=== PATIENT | male | born 1965 | race American Indian/Alaskan Native ===

== ENCOUNTER 2017-05-09 05:41 | Day surgery (SDC) | payer BC ==
[2017-05-09 05:41] VITALS: BMI 53.2
[2017-05-09] MEDS ORDERED: Nitroglycerin 2% Ointment Foilpak UD TOP STA (06:07)
[2017-05-09] MEDS ORDERED: Aspirin 325 mg EC Tablets PO STA (06:07)
--- NOTE | 2017-05-09 06:11 | ED PDOC ---
Arrival/HPI - General Chief Complaint: Chest Pain Time Seen by Provider: 05/09/17 05:43 Historian: Patient - History of Present Illness Narrative History of Present Illness (Text): 05/09/17 06:00 Patel Rollins is a 51 year old male, whose past medical history includes CHF, hypertension, and obstructive sleep apnea, who presents to the Emergency department complaining of chest pain. Patient states he has been experiencing left-sided chest pain radiating to his back and left shoulder since yesterday. Patient states pain is sharp in quality. Patient denies any fever, chills, nausea, vomiting, diarrhea, urinary symptoms, neck pain, headache, dizziness, or any other complaints. PMD: Dr. Ashlie Carlin [employer] Service Technician: Dr. Jose Miguel Nance Time/Duration: Other (yesterday) Symptom Onset: Gradual Symptom Course: Unchanged Activities at Onset: Rest, Light Context: Home Past Medical History - Provider Review Nursing Documentation Reviewed: Yes - Infectious Disease Hx of Infectious Diseases: None - Cardiac Hx Cardiac Disorders: Yes Hx Congestive Heart Failure: Yes Hx Hypertension: Yes Hx Pacemaker: No - Pulmonary Hx Respiratory Disorders: No - Neurological Hx Neurological Disorder: No Hx Paralysis: No - HEENT Hx HEENT Disorder: Yes Hx Glaucoma: Yes - Renal Hx Renal Disorder: No - Endocrine/Metabolic Hx Endocrine Disorders: No - Hematological/Oncological Hx Blood Disorders: No Hx Blood Transfusions: No - Integumentary Hx Dermatological Disorder: No - Musculoskeletal/Rheumatological Hx Musculoskeletal Disorders: No - Gastrointestinal Hx Gastrointestinal Disorders: No - Genitourinary/Gynecological Hx Genitourinary Disorders: No - Psychiatric Hx Psychophysiologic Disorder: No Hx Substance Use: No - Surgical History Hx Orthopedic Surgery: Yes (Right Knee Surgery) - Anesthesia Hx Anesthesia: Yes Hx Anesthesia Reactions: No Hx Malignant Hyperthermia: No Family/Social History - Physician Review Nursing Documentation Reviewed: Yes Family/Social History: Unknown Family HX Smoking Status: Never Smoked Hx Alcohol Use: No Hx Substance Use: No Allergies/Home Meds Allergies/Adverse Reactions: Allergies seafood Allergy (Uncoded 05/09/17 07:10) RASH Home Medications: Home Meds Medication Instructions Recorded Confirmed Brimonidine 0.15% [Alphagan P 5 Ml] 1 drop OU BID 04/29/17 05/09/17 Carvedilol [Coreg] 3.125 mg PO BID 04/29/17 05/09/17 Furosemide [Lasix] 20 mg PO DAILY 04/29/17 05/09/17 Latanoprost 0.005% Opht [XALATAN 1 drop OU HS 04/29/17 05/09/17 2.5 Ml] Valsartan [Diovan] 160 mg PO DAILY 04/29/17 05/09/17 Review of Systems - Physician Review All systems were reviewed & negative as marked: Yes - Review of Systems Constitutional: Normal. absent: Fevers Eyes: Normal ENT: Normal Respiratory: absent: Cough Cardiovascular: Chest Pain Gastrointestinal: Normal. absent: Abdominal Pain, Diarrhea, Nausea, Vomiting Genitourinary Male: Normal. absent: Dysuria, Frequency, Hematuria, Urinary Output Changes Musculoskeletal: absent: Neck Pain Skin: Normal. absent: Rash Neurological: Normal. absent: Headache, Dizziness Endocrine: Normal Hemo/Lymphatic: Normal Psychiatric: Normal Physical Exam Vital Signs Reviewed: Yes Vital Signs Temp Pulse Resp BP BP BP Pulse Ox 05/09/17 06:31 80 20 141/92 H 96 05/09/17 05:50 129/85 141/92 H 05/09/17 05:48 97.6 F 84 20 120/61 98 Temperature: Afebrile Blood Pressure: Normal Pulse: Regular Respiratory Rate: Normal Appearance: Positive for: Well-Appearing, Non-Toxic, Comfortable Pain Distress: None Mental Status: Positive for: Alert and Oriented X 3 - Systems Exam Head: Present: Atraumatic, Normocephalic Pupils: Present: PERRL Extroacular Muscles: Present: EOMI Conjunctiva: Present: Normal Mouth: Present: Moist Mucous Membranes Neck: Present: Normal Range of Motion Respiratory/Chest: Present: Clear to Auscultation, Good Air Exchange. No: Respiratory Distress, Accessory Muscle Use Cardiovascular: Present: Regular Rate and Rhythm, Normal S1, S2. No: Murmurs Abdomen: Present: Normal Bowel Sounds. No: Tenderness, Distention, Peritoneal Signs Back: Present: Normal Inspection Upper Extremity: Present: Normal Inspection. No: Cyanosis, Edema Lower Extremity: Present: Normal Inspection. No: Edema Neurological: Present: GCS=15, CN II-XII Intact, Speech Normal Skin: Present: Warm, Dry, Normal Color. No: Rashes Psychiatric: Present: Alert, Oriented x 3, Normal Insight, Normal Concentration Medical Decision Making ED Course and Treatment: 05/09/17 06:00 Impression: 51 year old male complaining of left-sided chest pain radiating to back and left shoulder since yesterday. Plan: -- EKG -- Chest X-ray -- Labs, cardiac enzymes, BNP -- Urinalysis -- Aspirin -- Nitroglycerin -- Reassess and disposition Progress Notes: Reviewed EKG, NSR at [address]-segment elevations or depressions, no T-wave inversions, normal intervals. - Lab Interpretations Lab Results: 05/09/17 06:10 05/09/17 06:10 Lab Results 05/09/17 06:51: Urine Color Yellow, Urine Appearance Clear, Urine pH 6.0, Ur Specific [place] 1.025, Urine Protein Negative, Urine Glucose (UA) Negative, Urine Ketones Negative, Urine Blood Moderate H, Urine Nitrate Negative, Urine Bilirubin Negative, Urine Urobilinogen 1.0 H, Ur Leukocyte Esterase Negative, Urine RBC 1 - 3, Urine WBC 0 - 2, Ur Epithelial Cells 0 - 2, Urine Bacteria Neg 05/09/17 06:10: PT 10.8, INR 1.00, APTT 31.7 H 05/09/17 06:10: Sodium 140, Potassium 4.2, Chloride 102, Carbon Dioxide 29, Anion Gap 13, BUN 16, Creatinine 1.0, Est GFR ( Amer) > 60, Est GFR (Non- Af Amer) > 60, Random Glucose 95, Calcium 9.0, Magnesium 1.9, Total Bilirubin 0.7, AST 27, ALT 29, Alkaline Phosphatase 82, Lactate Dehydrogenase 378, Total Creatine Kinase 161, Troponin I < 0.01, NT-Pro-B Natriuret Pep 304, Total Protein 7.8, Albumin 4.0, Globulin 3.9, Albumin/Globulin Ratio 1.0 L 05/09/17 06:10: WBC 6.0, RBC 4.41, Hgb 12.5 L, Hct 38.8 L, MCV 88.0, MCH 28.3, MCHC 32.2, RDW 13.3, Plt Count 275, MPV 9.4, Gran % 57.7, Lymph % (Auto) 30.3, Howard % (Auto) 9.6 H, Eos % (Auto) 2.2, Baso % (Auto) 0.2, Gran # 3.48, Lymph # 1.8, Howard # 0.6, Eos # 0.1, Baso # 0.01 - RAD Interpretation Radiology Orders: 05/09/17 06:04 CHEST PORTABLE [RAD] Stat - EKG Interpretation Interpreted by ED Physician: Yes Type: 12 lead EKG - Medication Orders Current Medication Orders: Discontinued Medications Aspirin (Ecotrin) 325 mg PO STAT STA Stop: 05/09/17 06:08 Last Admin: 05/09/17 06:18 Dose: 325 mg Atropine Sulfate (Atropine) Confirm Administered Dose 1 mg .ROUTE .STK-MED ONE Stop: 05/09/17 07:00 Last Admin: 05/09/17 08:54 Dose: Bivalirudin (Angiomax) Confirm Administered Dose 250 mg IV .STK-MED ONE Stop: 05/09/17 07:01 Last Admin: 05/09/17 08:54 Dose: Clopidogrel Bisulfate (Plavix) Confirm Administered Dose 600 mg .ROUTE .STK-MED ONE Stop: 05/09/17 07:29 Last Admin: 05/09/17 07:33 Dose: 600 mg Comments: per dr. nance Diphenhydramine HCl (Benadryl) Confirm Administered Dose 50 mg .ROUTE .STK-MED ONE Stop: 05/09/17 07:29 Last Admin: 05/09/17 07:34 Dose: 50 mg Comments: per dr nance Fentanyl (Fentanyl) Confirm Administered Dose 100 mcg .ROUTE .STK-MED ONE Stop: 05/09/17 08:01 Last Admin: 05/09/17 08:02 Dose: 100 mcg Comments: [address] Nance @ 0802 50 mcg administered @ 0817 Heparin Sodium (Porcine) (Heparin 1000 Units/500 Ml Ns) Confirm Administered Dose 1,500 mls @ ud IV .STK-MED ONE Stop: 05/09/17 07:01 Famotidine (Pepcid 20mg/50ml Premix) Confirm Administered Dose 20 mg in 50 mls @ ud IVPB .STK-MED ONE Stop: 05/09/17 07:30 Last Admin: 05/09/17 07:34 Dose: 20 mg Comments: per dr nance Sodium Chloride (Sodium Chloride 0.9%) 1,000 mls @ 100 mls/hr IV .Q10H BAYLEE Stop: 05/09/17 14:00 Last Admin: 05/09/17 10:06 Dose: 100 mls/hr Iohexol (Omnipaque 350mg/Ml 50 Ml) Confirm Administered Dose 50 ml .ROUTE .STK- MED ONE Stop: 05/09/17 07:01 Last Admin: 05/09/17 09:12 Dose: Iohexol (Omnipaque 350 150 Ml) Confirm Administered Dose 150 ml .ROUTE .STK-MED ONE Stop: 05/09/17 07:01 Last Admin: 05/09/17 08:18 Dose: 150 ml Comments: Administered during procedure. Lidocaine HCl (Lidocaine 2% 20ml Vial) Confirm Administered Dose 20 ml .ROUTE .STK-MED ONE Stop: 05/09/17 07:00 Last Admin: 05/09/17 09:13 Dose: 10 ml Comments: Administered [place] by Dr. Nance Losartan Potassium (Cozaar) 100 mg PO DAILY BAYLEE Last Admin: 05/09/17 09:59 Dose: 100 mg Methylprednisolone (Solu-Medrol) Confirm Administered Dose 125 mg .ROUTE .STK- MED ONE Stop: 05/09/17 07:29 Last Admin: 05/09/17 07:34 Dose: 125 mg Comments: per dr nance Midazolam HCl (Versed Inj) Confirm Administered Dose 2 mg .ROUTE .STK-MED ONE Stop: 05/09/17 08:01 Last Admin: 05/09/17 08:02 Dose: 2 mg Comments: Administered by Dr. Nance Midazolam HCl (Versed Inj) Confirm Administered Dose 2 mg .ROUTE .STK-MED ONE Stop: 05/09/17 08:06 Last Admin: 05/09/17 08:17 Dose: 1 mg Comments: As per Dr. Nance Nitroglycerin (Nitro-Bid 2% Oint) 1 ea TOP ONCE STA Stop: 05/09/17 06:08 Last Admin: 05/09/17 06:20 Dose: 1 ea Nitroglycerin (Nitrostat Sl Tab) Confirm Administered Dose 0.4 mg SL .STK-MED ONE Stop: 05/09/17 08:34 Last Admin: 05/09/17 08:31 Dose: 0.4 mg Comments: As per Dr. Nance - Antoine Statement The provider has reviewed the documentation as recorded by the Antoine Melendez Provider Scribe Attestation: All medical record entries made by the Scribe were at my direction and personally dictated by me. I have reviewed the chart and agree that the record accurately reflects my personal performance of the history, physical exam, medical decision making, and the department course for this patient. I have also personally directed, reviewed, and agree with the discharge instructions and disposition. Disposition/Present on Arrival - Present on Arrival Any Indicators Present on Arrival: No History of DVT/PE: No History of Uncontrolled Diabetes: No Urinary Catheter: No History of Decub. Ulcer: No History Surgical Site Infection Following: Orthopedic Procedures - Disposition Have Diagnosis and Disposition been Completed?: Yes Diagnosis: Chest pain Disposition: HOSPITALIZED Disposition Time: 06:30 Condition: FAIR
[2017-05-09 06:24] LABS: BASO # 0.01 K/mm3 (0.0-2.0); BASO % 0.2 % (0.0-3.0); EOS # 0.1 (0.0-0.7); EOS % 2.2 % (1.5-5.0); GRAN # 3.48 (1.4-6.5); GRAN % 57.7 % (50.0-68.0); HEMOGLOBIN 12.5 gm/dL (14.0-18.0); LYMPH # 1.8 (1.2-3.4); LYMPH % 30.3 % (22.0-35.0); MEAN CORPUSCULAR HEMOGLOBIN 28.3 pg (25.0-35.0); MEAN CORPUSCULAR HGB CONC 32.2 g/dl (31.0-37.0); MEAN PLATELET VOLUME 9.4 fl (7.0-11.0); MONO # 0.6 (0.1-0.6); MONO % 9.6 % (1.0-6.0); PLATELET COUNT 275 10^3/uL (120.0-450.0); RBC 4.41 10^6/uL (3.5-6.1); RED CELL DISTRIBUTION WIDTH 13.3 % (11.5-14.5)
[2017-05-09 06:29] LABS: PARTIAL THROMBOPLASTIN TIME 31.7 Seconds (23.7-30.8); PROTHROMBIN TIME 10.8 Seconds (9.9-11.8)
[2017-05-09 06:31] LABS: ALT/SGPT 29 U/L (7-56); AST/SGOT 27 U/L (15-59); BLOOD UREA NITROGEN 16 mg/dL (7-21); GFR AFRICAN-AMERICAN > 60; GFR NON-AFRICAN AMERICAN > 60; MAGNESIUM 1.9 mg/dL (1.7-2.2)
[2017-05-09 06:32] VITALS: O2SAT 96
[2017-05-09 06:42] LABS: B-TYPE NATRIURETIC PEPTIDE 304 pg/mL (0-450)
[2017-05-09 06:44] LABS: TROPONIN I < 0.01 ng/mL
[2017-05-09] MEDS ORDERED: Lidocaine 2% Inj (20ml) ONE (06:59)
[2017-05-09] MEDS ORDERED: Iohexol 350mgl/ml 50 ML ONE (07:00)
[2017-05-09 07:10] LABS: URINE BILIRUBIN NEGATIVE (NEGATIVE); URINE BLOOD MODERATE (NEGATIVE); URINE GLUCOSE (UA) NEGATIVE (NEGATIVE); URINE LEUKOCYTE ESTERASE NEGATIVE Leu/uL (NEGATIVE); URINE NITRATE NEGATIVE (NEGATIVE); URINE PROTEIN NEGATIVE mg/dL (<30 mg/dL)
[2017-05-09] MEDS ORDERED: DiphenhydrAMINE 50 mg/ml Inj ONE (07:28)
[2017-05-09] MEDS ORDERED: Famotidine 20mg/50ml 20 MG/50 ML BAG IVPB ONE (07:29)
[2017-05-09 07:31] LABS: URINE APPEARANCE CLEAR (CLEAR); URINE COLOR YELLOW (YELLOW)
[2017-05-09 07:34] LABS: URINE EPITHELIAL CELLS 0 - 2 /hpf (0-5); URINE WBC 0 - 2 /hpf (0-6)
[2017-05-09 07:35] LABS: URINE BACTERIA NEG (NEG)
[2017-05-09] MEDS ORDERED: Midazolam 2 MG/2 ML VIAL ONE ×2 (08:00→08:05)
--- NOTE | 2017-05-09 08:32 | RAD ---
HISTORY: cp COMPARISON: No prior. FINDINGS: LUNGS: No active pulmonary disease. PLEURA: No significant pleural effusion identified, no pneumothorax apparent. CARDIOVASCULAR: Moderate cardiomegaly OSSEOUS STRUCTURES: No significant abnormalities. VISUALIZED UPPER ABDOMEN: Normal. OTHER FINDINGS: None. IMPRESSION: No active disease.
[2017-05-09] MEDS ORDERED: Sodium Chloride 0.9% 1,000 ML IV SCH (09:15)
--- NOTE | 2017-05-09 09:56 | CARD ---
APPROVED REPORT EKG Measurement Heart [id number] <Conclusion> Normal sinus rhythm with 1st degree AVB
[2017-05-09 10:15] VITALS: RESP 18
[2017-05-09 12:09] VITALS: TEMP 98.4
--- NOTE | 2017-05-09 12:19 | CARDCATH ---
PROCEDURE DATE: 05/09/2017 HISTORY: The patient is a 51-year-old male with multiple cardiac risk factors who presented to the emergency room with progressive chest pain and shortness of breath. The patient's past medical history is notable for multiple cardiac risk factors. A stress test performed early in the week was abnormal with anterior wall ischemia. Because of the symptoms as well as his pretest probability of coronary artery disease, cardiac catheterization was recommended. PROCEDURE: Left heart catheterization with coronary angiography and left ventriculogram. The right femoral artery was cannulated with a 6-[place] sheath. There were no complications. Findings on catheterization revealed the left ventricle that contracted normally. Estimated ejection fraction of 55% to 60%. His coronary anatomy revealed a codominant circulation. The RCA revealed intimal irregularities without significant stenoses. The left main artery was unremarkable. The LAD and diagonal vessels revealed intimal irregularities without critical lesions. The circumflex artery which is a codominant vessel was free of significant disease. Angio-Seal was used to close the femoral artery site. The patient tolerated the procedure well. In summary, the procedure revealed nonobstructive coronary artery disease. Normal left ventricular function. Morbid obesity. Hypertension and diabetes mellitus. Given these findings, the patient's treatment will require strict cardiac risk reduction program. A strict weight loss program will be necessary. Juan Monge MD
[2017-05-09 15:01] VITALS: BP 125/62; PULSE 74
== END 2017-05-09 16:37 | disposition home or self-care (01) ==
LOC: ED 05:41 → CATH 07:25 → 2RSO 09:04 → CATH 16:37
PROVIDERS: ATTEND Internal Medicine Cardiovascular Disease
DX: I25.10 Atherosclerotic heart disease of native coronary artery without angina pectoris (principal); I11.0 Hypertensive heart disease with heart failure; I50.9 Heart failure, unspecified; E11.9 Type 2 diabetes mellitus without complications; E66.01 Morbid (severe) obesity due to excess calories; Z68.43 Body mass index [BMI] 50.0-59.9, adult; G47.33 Obstructive sleep apnea (adult) (pediatric)
CPT/HCPCS: 71010; 80053; 81001; 82550; 83615; 83735; 83880; 84484; 85025; 85610; 85730; 93005; 93458; 99152; 99283; C1760; C1769; C2629; J1200; J1644; J2250; J2930; J3010; J7040 ×2; Q9967